=== PATIENT | female | born 1980 | race Caucasian/White ===

== ENCOUNTER 2017-02-07 11:47 | Emergency (ER) | payer MEDICAID ==
[2017-02-07 11:55] VITALS: TEMP 98.1
[2017-02-07] MEDS ORDERED: Sodium Chloride 0.9% 1,000 ML IV STA (12:04)
--- NOTE | 2017-02-07 12:32 | ED PDOC ---
Arrival/HPI - General Chief Complaint: Abdominal Pain Time Seen by Provider: 02/07/17 11:57 Historian: Patient - History of Present Illness Narrative History of Present Illness (Text): 02/07/17 12:00 A 37 year old female, whose past medical history includes addominoplasty and lyme disease(treated one year ago), presents to the emergency department complaining of RUQ and right side abdominal pain since last night. Patient denies of any fever, chills, nausea, vomiting, diarrhea, or any other complaints. LMP 02/05. PMD: Dr. Sharpe Past Medical History - Provider Review Nursing Documentation Reviewed: Yes - Infectious Disease Hx of Infectious Diseases: None - Cardiac Hx Cardiac Disorders: No - Pulmonary Hx Respiratory Disorders: No - Neurological Hx Neurological Disorder: No - HEENT Hx HEENT Disorder: No - Renal Hx Renal Disorder: No - Endocrine/Metabolic Hx Endocrine Disorders: No - Hematological/Oncological Hx Blood Disorders: Yes Hx Anemia: Yes Other/Comment: LYME DISEASE 1 YR AGO WAS TREATED - Integumentary Hx Dermatological Disorder: No - Musculoskeletal/Rheumatological Hx Musculoskeletal Disorders: No - Gastrointestinal Hx Gastrointestinal Disorders: Yes Hx Gastroesophageal Reflux: Yes - Genitourinary/Gynecological Hx Genitourinary Disorders: Yes Other/Comment: PELVIC PAIN - Psychiatric Hx Psychophysiologic Disorder: No Hx Substance Use: No - Surgical History Other/Comment: ABDOMINOPLASTY - Anesthesia Hx Anesthesia: Yes Hx Anesthesia Reactions: No Hx Malignant Hyperthermia: No Family/Social History - Physician Review Nursing Documentation Reviewed: Yes Family/Social History: No Known Family HX Smoking Status: Never Smoked Hx Alcohol Use: No Hx Substance Use: No Allergies/Home Meds Allergies/Adverse Reactions: Allergies No Known Allergies Allergy (Verified 02/07/17 11:52) Home Medications: Home Meds Medication Instructions Recorded Confirmed Omeprazole 40 mg PO DAILY 10/27/13 02/07/17 Review of Systems - Physician Review All systems were reviewed & negative as marked: Yes - Review of Systems Constitutional: absent: Fevers, Night Sweats Gastrointestinal: Abdominal Pain (RUQ and right sided abdominal pain). absent: Diarrhea, Nausea, Vomiting Physical Exam Vital Signs Reviewed: Yes Vital Signs Temp Pulse Resp BP Pulse Ox 02/07/17 18:49 59 L 17 110/80 100 02/07/17 16:50 60 17 109/74 99 02/07/17 13:00 62 17 105/70 98 02/07/17 11:55 98.1 F 58 L 16 103/68 98 Temperature: Afebrile Blood Pressure: Normal Pulse: Regular Respiratory Rate: Normal Appearance: Positive for: Well-Appearing Pain Distress: None Mental Status: Positive for: Alert and Oriented X 3 - Systems Exam Head: Present: Atraumatic, Normocephalic Pupils: Present: PERRL Extroacular Muscles: Present: EOMI Conjunctiva: Present: Normal Mouth: Present: Moist Mucous Membranes Neck: Present: Normal Range of Motion Respiratory/Chest: Present: Clear to Auscultation, Good Air Exchange. No: Respiratory Distress, Accessory Muscle Use Cardiovascular: Present: Regular Rate and Rhythm, Normal S1, S2. No: Murmurs Abdomen: Present: Tenderness (right-sided tenderness) Back: Present: Normal Inspection Upper Extremity: Present: Normal Inspection. No: Cyanosis, Edema Lower Extremity: Present: Normal Inspection. No: Edema Neurological: Present: GCS=15, CN II-XII Intact, Speech Normal Skin: Present: Warm, Dry, Normal Color. No: Rashes Psychiatric: Present: Alert, Oriented x 3, Normal Insight, Normal Concentration Medical Decision Making ED Course and Treatment: 02/07/17 12:05 Impression: 37 year old female with RUQ and right sided abdominal pain. Physical exam shows right-sided tenderness. Plan: -- Abd/Pelvis CT -- Abdominal Ultrasound -- Labs -- Urinalysis -- IV Fluids -- Reassess and disposition Progress Notes: 02/07/2017 17:27 Abd/Pelvis CT FINDINGS: LOWER THORAX: No visible consolidation, pleural effusion, or pneumothorax. LIVER: Hypoattenuation of the liver compatible with hepatic steatosis. GALLBLADDER AND BILE DUCTS: Echogenic foci suspected to reflect cholelithiasis. Right upper quadrant ultrasound may be considered for further evaluation if indicated. PANCREAS: Unremarkable. SPLEEN: Unremarkable. ADRENALS: Unremarkable. KIDNEYS AND URETERS: The kidneys enhance symmetrically. No hydronephrosis or obstructing calculus identified. VASCULATURE: No aortic aneurysm. BOWEL: Stomach is nondistended. Lack of oral contrast limits evaluation for bowel pathology. Bowel loops appear within normal limits of caliber without evidence of obstruction. Moderate constipation. APPENDIX: The presumed appendix appears within normal limits of caliber. No secondary signs of acute appendicitis. PERITONEUM: No significant free fluid. No definite free air. LYMPH NODES: No bulky adenopathy identified. BLADDER: Mildly thick-walled under distended urinary bladder. REPRODUCTIVE: The uterus is present and appears heterogeneous with probable uterine fibroids. BONES: No acute osseous abnormality is detected. OTHER FINDINGS: None. IMPRESSION: The uterus is present and appears heterogeneous with probable uterine fibroids. Hypoattenuation of the liver compatible with hepatic steatosis. Mildly thick-walled under distended urinary bladder. Moderate constipation. Echogenic foci suspected to reflect cholelithiasis. Right upper quadrant ultrasound may be considered for further evaluation if indicated. Dictator: Myra Regalado MD 02/07/2017 18:22 Abdominal Ultrasound FINDINGS: LIVER: Measures 13.5 cm. Normal echogenicity of the liver parenchyma. No mass. No intrahepatic bile duct dilatation. GALLBLADDER: Unremarkable. No gallstones. COMMON BILE DUCT: Measures 1.6 mm. No stones. No dilatation. PANCREAS: Unremarkable as visualized. No mass. No ductal dilatation. RIGHT KIDNEY: Measures 0.8 x 10.6cm. Normal echogenicity. No calculus, mass, or hydronephrosis. LEFT KIDNEY: Measures 3.8 x 9.9cm. Normal echogenicity. No calculus, mass, or hydronephrosis. SPLEEN: Normal in size and contour. No mass. AORTA: No aneurysmal dilatation. IVC: Unremarkable. OTHER FINDINGS: None. IMPRESSION: No significant or acute findings to account for/ related to the clinical presentation.No significant interval change compared to the prior examination(s) . Dictator: Erik Mar MD 02/07/17 18:37 pt reassesed: remains pain free in er. pt notified on wbc count. marshall/o of infection, no cardiopulm complaints. advise outpt f/u and return precautions - Lab Interpretations Lab Results: 02/07/17 12:40 02/07/17 12:40 Lab Results 02/07/17 13:06: Urine Color Yellow, Urine Appearance Clear, Urine pH 6.5, Ur Specific Shiner <= 1.005, Urine Protein Negative, Urine Glucose (UA) Negative, Urine Ketones Negative, Urine Blood Negative, Urine Nitrate Negative, Urine Bilirubin Negative, Urine Urobilinogen 0.2, Ur Leukocyte Esterase Negative, Urine HCG, Qual Negative 02/07/17 12:40: Sodium 138, Potassium 4.0, Chloride 102, Carbon Dioxide 27, Anion Gap 13, BUN 14, Creatinine 0.7, Est GFR ( Amer) > 60, Est GFR (Non- Af Amer) > 60, Random Glucose 86, Calcium 8.9, Total Bilirubin 0.7, AST 38 H, ALT 46, Alkaline Phosphatase 44, Total Protein 7.2, Albumin 4.3, Globulin 2.8, Albumin/Globulin Ratio 1.5, Lipase 69 02/07/17 12:40: PT 10.8, INR 1.00, APTT 29.2 02/07/17 12:40: WBC 2.6 L*, RBC 3.89, Hgb 11.0 L, Hct 33.7 L, MCV 86.6, MCH 28.3 , MCHC 32.6, RDW 15.0 H, Plt Count 208, MPV 11.1 H, Gran % 29.3 L, Lymph % (Auto ) 60.8 H, [place] % (Auto) 8.7 H, Eos % (Auto) 0.4 L, Baso % (Auto) 0.8, Gran # 0.77 L, Lymph # 1.6, [place] # 0.2, Eos # 0.0, Baso # 0.02 I have reviewed the lab results: Yes - RAD Interpretation Radiology Orders: 02/07/17 15:40 ABD & PELVIS IV CONTRAST ONLY [CT] Stat 02/07/17 17:29 ABDOMEN COMPLETE [US] Stat - Medication Orders Current Medication Orders: Discontinued Medications Sodium Chloride (Sodium Chloride 0.9%) 1,000 mls @ 1,000 mls/hr IV .Q1H STA Stop: 02/07/17 13:03 Last Admin: 02/07/17 12:26 Dose: 1,000 mls/hr eMAR Start Stop Document 02/07/17 12:26 SF (Rec: 02/07/17 12:26 SF [facility] [id number]) Intravenous Solution Start Date 02/07/17 Start Time 12:26 End Date 02/07/17 End time 13:26 Total Infusion Time 60 - Scribe Statement The provider has reviewed the documentation as recorded by the Jimmieibmariia William Provider Scribe Attestation: All medical record entries made by the Scribe were at my direction and personally dictated by me. I have reviewed the chart and agree that the record accurately reflects my personal performance of the history, physical exam, medical decision making, and the department course for this patient. I have also personally directed, reviewed, and agree with the discharge instructions and disposition. Disposition/Present on Arrival - Present on Arrival Any Indicators Present on Arrival: No History of DVT/PE: No History of Uncontrolled Diabetes: No Urinary Catheter: No History of Decub. Ulcer: No History Surgical Site Infection Following: None - Disposition Have Diagnosis and Disposition been Completed?: Yes Diagnosis: Abdominal pain Disposition: HOME/ ROUTINE Disposition Time: 06:50 Condition: STABLE Discharge Instructions (ExitCare): Uterine Fibroids (ED), Acute Abdominal Pain (ED), Neutropenia (ED) Referrals: Barrie Amanda MD [Staff Provider] - Follow up with primary Sahil Amanda MD [Staff Provider] - Follow up with primary Mt Ruff MD [Staff Provider] - Follow up with primary PCP,NO [Primary Care Provider] - Follow up with primary Forms: [employer] (Angolan)
[2017-02-07 13:10] LABS: BASO # 0.02 K/mm3 (0.0-2.0); BASO % 0.8 % (0.0-3.0); EOS % 0.4 % (1.5-5.0); GRAN # 0.77 (1.4-6.5); GRAN % 29.3 % (50.0-68.0); HEMATOCRIT 33.7 % (36.0-48.0); LYMPH # 1.6 (1.2-3.4); LYMPH % 60.8 % (22.0-35.0); MEAN CELL VOLUME 86.6 fl (80.0-105.0); MEAN CORPUSCULAR HEMOGLOBIN 28.3 pg (25.0-35.0); MEAN CORPUSCULAR HGB CONC 32.6 g/dl (31.0-37.0); MEAN PLATELET VOLUME 11.1 fl (7.0-11.0); MONO # 0.2 (0.1-0.6); MONO % 8.7 % (1.0-6.0)
[2017-02-07 13:18] LABS: ALB/GLOB RATIO 1.5 (1.1-1.8); ALKALINE PHOSPHATASE 44 U/L (38-126); ALT/SGPT 46 U/L (7-56); AST/SGOT 38 U/L (14-36); BILIRUBIN,TOTAL 0.7 mg/dL (0.2-1.3); BLOOD UREA NITROGEN 14 mg/dL (7-21); CALCIUM 8.9 mg/dL (8.4-10.5); CARBON DIOXIDE 27 mmol/L (21-33); CHLORIDE 102 mmol/L (98-107); GFR AFRICAN-AMERICAN > 60; GLUCOSE,RANDOM 86 mg/dL (70-110); LIPASE 69 U/L (23-300); SODIUM 138 mmol/L (132-148); TOTAL PROTEIN 7.2 g/dL (5.8-8.3)
[2017-02-07 13:20] LABS: PARTIAL THROMBOPLASTIN TIME 29.2 Seconds (23.7-30.8)
[2017-02-07 13:21] LABS: WHITE BLOOD COUNT 2.6 10^3/ul (4.5-11.0)
[2017-02-07 13:24] LABS: PH,URINE 6.5 (4.7-8.0); URINE BILIRUBIN NEGATIVE (NEGATIVE); URINE BLOOD NEGATIVE (NEGATIVE); URINE GLUCOSE (UA) NEGATIVE (NEGATIVE); URINE KETONE NEGATIVE (NEGATIVE); URINE LEUKOCYTE ESTERASE NEGATIVE Leu/uL (NEGATIVE); URINE PROTEIN NEGATIVE mg/dL (<30 mg/dL); URINE UROBILINOGEN 0.2 E.U./dL (<1 E.U./dL)
[2017-02-07 13:26] LABS: URINE APPEARANCE CLEAR (CLEAR); URINE COLOR YELLOW (YELLOW)
[2017-02-07] MEDS ORDERED: Iohexol 350 MG/100 ML VIAL ONE (16:39)
[2017-02-07 17:11] VITALS: RESP 17
--- NOTE | 2017-02-07 17:28 | CT ---
PROCEDURE: CT Abdomen and Pelvis with contrast HISTORY: right sided abd pain COMPARISON: CT abdomen and pelvis with contrast performed 11/26/12, abdominal ultrasound performed 07/26/15 TECHNIQUE: Contrast dose: 100 mL Omnipaque 350 Radiation dose: Total exam DLP = 430.66 mGy-cm. This CT exam was performed using one or more of the following dose reduction techniques: Automated exposure control, adjustment of the mA and/or kV according to patient size, and/or use of iterative reconstruction technique. FINDINGS: LOWER THORAX: No visible consolidation, pleural effusion, or pneumothorax. LIVER: Hypoattenuation of the liver compatible with hepatic steatosis. GALLBLADDER AND BILE DUCTS: Echogenic foci suspected to reflect cholelithiasis. Right upper quadrant ultrasound may be considered for further evaluation if indicated. PANCREAS: Unremarkable. SPLEEN: Unremarkable. ADRENALS: Unremarkable. KIDNEYS AND URETERS: The kidneys enhance symmetrically. No hydronephrosis or obstructing calculus identified. VASCULATURE: No aortic aneurysm. BOWEL: Stomach is nondistended. Lack of oral contrast limits evaluation for bowel pathology. Bowel loops appear within normal limits of caliber without evidence of obstruction. Moderate constipation. APPENDIX: The presumed appendix appears within normal limits of caliber. No secondary signs of acute appendicitis. PERITONEUM: No significant free fluid. No definite free air. LYMPH NODES: No bulky adenopathy identified. BLADDER: Mildly thick-walled under distended urinary bladder. REPRODUCTIVE: The uterus is present and appears heterogeneous with probable uterine fibroids. BONES: No acute osseous abnormality is detected. OTHER FINDINGS: None. IMPRESSION: The uterus is present and appears heterogeneous with probable uterine fibroids. Hypoattenuation of the liver compatible with hepatic steatosis. Mildly thick-walled under distended urinary bladder. Moderate constipation. Echogenic foci suspected to reflect cholelithiasis. Right upper quadrant ultrasound may be considered for further evaluation if indicated.
--- NOTE | 2017-02-07 18:24 | US ---
HISTORY: Right upper quadrant pain. COMPARISON: 07/26/2015. Abdominal ultrasound. February 07, 2017. CT abdomen and pelvis TECHNIQUE: Sonographic evaluation of the abdomen. FINDINGS: LIVER: Measures 13.5 cm. Normal echogenicity of the liver parenchyma. No mass. No intrahepatic bile duct dilatation. GALLBLADDER: Unremarkable. No gallstones. COMMON BILE DUCT: Measures 1.6 mm. No stones. No dilatation. PANCREAS: Unremarkable as visualized. No mass. No ductal dilatation. RIGHT KIDNEY: Measures 0.8 x 10.6cm. Normal echogenicity. No calculus, mass, or hydronephrosis. LEFT KIDNEY: Measures 3.8 x 9.9cm. Normal echogenicity. No calculus, mass, or hydronephrosis. SPLEEN: Normal in size and contour. No mass. AORTA: No aneurysmal dilatation. IVC: Unremarkable. OTHER FINDINGS: None. IMPRESSION: No significant or acute findings to account for/ related to the clinical presentation.No significant interval change compared to the prior examination(s).
[2017-02-07 18:50] VITALS: BP 110/80; PULSE 59; O2SAT 100
== END 2017-02-07 18:50 | disposition home or self-care (01) ==
LOC: ED 11:47
DX: R10.9 Unspecified abdominal pain (principal); K21.9 Gastro-esophageal reflux disease without esophagitis; Z98.890 Other specified postprocedural states
CPT/HCPCS: 74177; 76700; 80053; 81003; 83690; 84703; 85025; 85610; 85730; 96360; 99285; J7040; Q9967